=== PATIENT | female | born 1940 | race Caucasian/White ===

== ENCOUNTER 2018-05-11 09:51 | Observation (INO) | payer OTHER ==
[~2018-05-11] VITALS: Ht 170.2 cm; Wt 83.9 kg
[2018-05-11] MEDS ORDERED: ASPIRIN 325 MG TABLET ONE (10:12)
[2018-05-11 10:14] LABS: BASOPHILS % (AUTO) 1.2 % (0.0-5.0); EOSINOPHILS % (AUTO) 2.7 % (0.0-8.0); HEMATOCRIT 34.2 % (36-48); LYMPHOCYTES % (AUTO) 22.3 % (21.0-51.0); MEAN CORPUSCULAR HEMOGLOBIN 31.7 pg (27.0-33.0); MEAN CORPUSCULAR HGB CONC 34.3 g/dL (32.0-36.0); MEAN CORPUSCULAR VOLUME 92.5 fL (79-99); MONOCYTES % (AUTO) 14.3 % (3.0-13.0); NEUTROPHILS % (AUTO) 59.5 % (40.0-77.0); PLATELET COUNT (AUTO) 177 K/uL (130-400); RED CELL DISTRIBUTION WIDTH 14.5 % (11.0-15.5); WHITE BLOOD COUNT (AUTO) 4.7 K/uL (4.8-10.8)
[2018-05-11 10:24] LABS: INR 0.94 (0.85-1.15); PARTIAL THROMBOPLASTIN TIME 25.8 SEC (26.3-35.5); PROTHROMBIN TIME 9.9 SEC (9.6-11.6)
[2018-05-11 10:26] LABS: CREATININE 1.2 mg/dL (0.5-1.5); POTASSIUM 4.2 mmol/L (3.5-5.1)
[2018-05-11 10:38] LABS: ALBUMIN 4.1 g/dL (3.5-5.0); BILIRUBIN,TOTAL 0.4 mg/dL (0.2-1.0); TOTAL PROTEIN, SERUM 7.3 g/dL (6.0-8.3)
[2018-05-11 15:25] VITALS: BP 138/60
[2018-05-11 15:31] LABS: CREATINE KINASE, TOTAL 144 U/L (21-232); MYOGLOBIN 73 ng/mL (10-92); TROPONIN I < 0.04 ng/mL (0.00-0.06)
[2018-05-11] MEDS ORDERED: ACETAMINOPHEN 325 MG TAB PO PRN ×2 (19:15)
[2018-05-11] MEDS ORDERED: GUAIFENESIN-DM 200/20 MG 10 ML PO PRN (19:15)
[2018-05-11] MEDS ORDERED: ALBUTEROL SULFATE 0.083% 2.5 MG/3 ML INH IH PRN (19:15)
[2018-05-11] MEDS ORDERED: ONDANSETRON HCL 4 MG/2 ML VIAL IV PRN (19:15)
[2018-05-11] MEDS ORDERED: NITROGLYCERIN 0.4 MG SL TAB SL PRN (19:15)
[2018-05-11] MEDS ORDERED: ZOLPIDEM TARTRATE 5 MG TAB PO PRN (19:15)
[2018-05-11 19:37] VITALS: BP 107/35
[2018-05-11] MEDS: METOPROLOL TARTRATE 25 MG TAB PO SCH (20:50)
[2018-05-11] MEDS: LACTULOSE 20 GM/30 ML UDCUP PO PRN (20:50)
[2018-05-11] MEDS: LISINOPRIL 5 MG TABLET PO SCH (21:00)
[2018-05-11] MEDS ORDERED: FLUT16H NASAL (23:19)
[2018-05-11] MEDS ORDERED: CETI-101 PO (23:19)
[2018-05-11] MEDS ORDERED: AMLO10TA7 PO (23:19)
[2018-05-11] MEDS ORDERED: ALBU0.63 IH (23:19)
[2018-05-11 23:34] VITALS: BP 104/51
[2018-05-12 04:02] VITALS: BP 110/56
[2018-05-12 06:08] LABS: CREATININE 1.1 mg/dL (0.5-1.5); MAGNESIUM 2.2 mg/dL (1.80-2.40); POTASSIUM 4.1 mmol/L (3.5-5.1); THYROID STIMULATING HORMONE 2.15 uIU/mL (0.36-3.74)
[2018-05-12 07:00] VITALS: BP 104/45
[2018-05-12] MEDS ORDERED: REGADENOSON 0.4 MG/5 ML PF SYG IVP SCH (07:30)
[2018-05-12] MEDS: METOPROLOL TARTRATE 25 MG TAB PO SCH ×2 (09:00→18:33)
[2018-05-12] MEDS: PANTOPRAZOLE SODIUM 40 MG TABLET.DR PO SCH (09:00)
[2018-05-12] MEDS: ASPIRIN 81MG TAB.CHEW PO SCH (09:00)
[2018-05-12] MEDS: LISINOPRIL 5 MG TABLET PO SCH ×2 (09:00→20:42)
[2018-05-12 11:00] VITALS: BP 131/69
--- NOTE | 2018-05-12 15:41 | NUR ---
INITIAL: Met with pt this afternoon to discuss dcp. Pt states that she lives alone. SHe is independent w ambulation and ADLs. She does not own any DME or receive services. Pt states she feels safe and comfortable to [place] home at [place]. Will continue to follow and wait for Md recommendations. Addendum: 05/12/18 at 1542 by CASIMIRO EDWARD CM Amended: Links added.
[2018-05-12 16:00] VITALS: BP 128/56
[2018-05-12 20:07] VITALS: BP 150/67
[2018-05-12] MEDS: LACTULOSE 20 GM/30 ML UDCUP PO PRN (20:42)
[2018-05-12 23:35] VITALS: BP 91/46
[2018-05-13 04:07] VITALS: BP 97/48
[2018-05-13 08:05] VITALS: BP 111/57
[2018-05-13 08:25] LABS: EOSINOPHILS % (AUTO) 4.4 % (0.0-8.0); HEMATOCRIT 35.8 % (36-48); LYMPHOCYTES % (AUTO) 26.2 % (21.0-51.0); MEAN CORPUSCULAR HEMOGLOBIN 31.3 pg (27.0-33.0); MEAN CORPUSCULAR HGB CONC 33.4 g/dL (32.0-36.0); MEAN CORPUSCULAR VOLUME 93.7 fL (79-99); MONOCYTES % (AUTO) 13.1 % (3.0-13.0); NEUTROPHILS % (AUTO) 55.3 % (40.0-77.0); NUCLEATED RED BLOOD CELLS 0.1 % (0.0-0.19); PLATELET COUNT (AUTO) 195 K/uL (130-400); RED BLOOD CELL COUNT(AUTO) 3.82 MIL/uL (4.00-5.50); RED CELL DISTRIBUTION WIDTH 14.7 % (11.0-15.5); WHITE BLOOD COUNT (AUTO) 4.7 K/uL (4.8-10.8)
[2018-05-13 08:34] LABS: CREATININE 1.1 mg/dL (0.5-1.5); POTASSIUM 4.5 mmol/L (3.5-5.1)
[2018-05-13] MEDS: LISINOPRIL 5 MG TABLET PO SCH ×2 (09:00→09:50)
[2018-05-13] MEDS: ASPIRIN 81MG TAB.CHEW PO SCH (09:50)
[2018-05-13] MEDS: PANTOPRAZOLE SODIUM 40 MG TABLET.DR PO SCH (09:50)
[2018-05-13] MEDS: METOPROLOL TARTRATE 25 MG TAB PO SCH (09:50)
[2018-05-13 11:58] VITALS: BP 94/57
[2018-05-13] MEDS ORDERED: ASPI-1005 PO (15:05)
[2018-05-13] MEDS ORDERED: METO25TA6 PO (15:34)
[2018-05-13 16:00] VITALS: BP 91/54
--- NOTE | 2018-05-13 17:00 | NUR ---
DISCHARGE Prescription for metoprolol was called to [facility] at [phone]. Discharge done. Pending for friend to come for patient.
== END 2018-05-13 19:00 | disposition home or self-care (01) ==
LOC: EDH 09:51 → EDHIP 11:55 → 3DH 15:25
PROVIDERS: ADMIT Internal Medicine Critical Care Medicine; ATTEND Internal Medicine Critical Care Medicine
DX: I49.3 Ventricular premature depolarization (principal); I12.9 Hypertensive chronic kidney disease with stage 1 through stage 4 chronic kidney disease, or unspecified chronic kidney disease; N18.3 Chronic kidney disease, stage 3 (moderate); I44.0 Atrioventricular block, first degree; J30.9 Allergic rhinitis, unspecified; J44.9 Chronic obstructive pulmonary disease, unspecified; K21.9 Gastro-esophageal reflux disease without esophagitis; Z85.3 Personal history of malignant neoplasm of breast; Z86.73 Personal history of transient ischemic attack (TIA), and cerebral infarction without residual deficits; Z87.891 Personal history of nicotine dependence; Z98.51 Tubal ligation status; Z83.3 Family history of diabetes mellitus; Z88.2 Allergy status to sulfonamides; Z79.01 Long term (current) use of anticoagulants; Z79.899 Other long term (current) drug therapy; I51.7 Cardiomegaly
CPT/HCPCS: 36415 ×3; 71045; 78452; 80048 ×2; 80053; 82550 ×2; 83735; 83874 ×2; 83880; 84443 ×2; 84484 ×2; 85025 ×2; 85610; 85730; 93005; 93017; 93306; 94664; 99284; A9500 ×2; G0378 ×55; J2785; 96374

== ENCOUNTER → 2022-04-08 | Outpatient (CLI) | payer OTHER ==
[~2022-04-08] MED LIST: ALBU0.63 IH; ASPI-1005 PO; CETI-89 PO; FLUT16H NASAL; METO25TA6 PO
[2022-04-08 12:47] LABS: BASOPHILS % (AUTO) 0.8 % (0.0-5.0); EOSINOPHILS % (AUTO) 1.7 % (0.0-8.0); HEMATOCRIT 31.4 % (36-48); LYMPHOCYTES % (AUTO) 17.4 % (21.0-51.0); MEAN CORPUSCULAR HEMOGLOBIN 32.7 pg (27.0-33.0); MEAN CORPUSCULAR HGB CONC 32.8 g/dL (32.0-36.0); MEAN CORPUSCULAR VOLUME 99.7 fL (79-99); MONOCYTES % (AUTO) 13.4 % (3.0-13.0); NEUTROPHILS % (AUTO) 66.3 % (40.0-77.0); PLATELET COUNT (AUTO) 177 K/uL (130-400); RED BLOOD CELL COUNT(AUTO) 3.15 MIL/uL (4.00-5.50); RED CELL DISTRIBUTION WIDTH 13.6 % (11.0-15.5); WHITE BLOOD COUNT (AUTO) 5.3 K/uL (4.8-10.8)
[2022-04-08 13:21] LABS: CREATININE 0.9 mg/dL (0.5-1.5); POTASSIUM 4.2 mmol/L (3.5-5.1); THYROID STIMULATING HORMONE 2.11 uIU/mL (0.36-3.74)
== END | disposition home or self-care (01) ==
LOC: LAB 08:16
PROVIDERS: ATTEND Internal Medicine
DX: I49.9 Cardiac arrhythmia, unspecified (principal); I10 Essential (primary) hypertension
CPT/HCPCS: 36415; 80048; 84439; 84443; 85025

== ENCOUNTER → 2022-04-29 | Outpatient (CLI) | payer OTHER | END | disposition home or self-care (01) | LOC: SHCH 11:14 | PROVIDERS: ATTEND Internal Medicine | DX: I35.0 Nonrheumatic aortic (valve) stenosis (principal); R00.2 Palpitations | CPT/HCPCS: 93306 ==

== ENCOUNTER → 2022-06-10 | Outpatient (CLI) | payer OTHER ==
[~2022-06-10] MED LIST changes: +ACET-66 PO; +ASCO-360 PO; +CHOL500050 PO; +CRAN250C2 PO; +MULT-1192 PO; +ROSU10TA28 PO; +UBID100C45 PO; +VALE1CAP3 PO
== END | disposition home or self-care (01) ==
LOC: RAH 09:17
PROVIDERS: ATTEND Internal Medicine Cardiovascular Disease
DX: J93.9 Pneumothorax, unspecified (principal)
CPT/HCPCS: 71046